=== PATIENT | male | born 1930 | race Caucasian/White ===

== ENCOUNTER 2018-10-26 14:29 | Inpatient (IN) | payer MEDICARE ==
[~2018-10-26] VITALS: Ht 162.6 cm; Wt 78.6 kg
[2018-10-26] MEDS ORDERED: AMARYL4 MG PO (14:56)
[2018-10-26] MEDS ORDERED: NEURONTIN100 MG/CAP PO (14:57)
[2018-10-26] MEDS ORDERED: FLOMAX 0.40.4 MG/CAP PO (14:57)
[2018-10-26] MEDS ORDERED: PROSCAR 5MG5 MG PO (14:57)
[2018-10-26] MEDS ORDERED: GLUCOPHAGE1000 MG PO (14:57)
[2018-10-26 15:44] LABS: BASO % 0.4 % (0.0-2.0); EOS # 0.2 (0.0-0.7); EOS % 2.1 % (0-4.0); GRAN # 5.2 (1.4-6.5); GRAN % 51.3 % (42.2-75.2); HEMOGLOBIN 12.4 g/dl (13.5-18.0); LYMPH # 3.9 (1.2-3.4); LYMPH % 38.3 % (20.0-51.0); MEAN CELL VOLUME 88 fl (80.0-100.0); MEAN CORPUSCULAR HEMOGLOBIN 30 pg (27.0-31.0); MEAN CORPUSCULAR HGB CONC 34 g/dl (33.0-37.0); MONO # 0.8 (0.1-0.6); MONO % 7.6 % (1.7-9.3); PLATELET COUNT 232 K/mm3 (130-400); RED BLOOD COUNT 4.14 M/mm3 (4.20-5.60)
[2018-10-26 15:45] LABS: HEMATOCRIT 36.4 % (42.0-52.0)
[2018-10-26 15:53] LABS: ALANINE AMINOTRANSFERASE 14 U/L (21-72); ALBUMIN 3.8 gm/dL (3.5-5.0); ALKALINE PHOSPHATASE 70 U/L (50-136); ANION GAP 11 mmol/L (7-16); AST,SGOT 18 U/L (15-37); BILIRUBIN,TOTAL 0.2 mg/dL (0.0-1.0); BLOOD UREA NITROGEN 23 mg/dL (9-20); CALCIUM 8.8 mg/dL (8.4-10.2); CARBON DIOXIDE 26 mmol/L (22-30); CHLORIDE 103 mmol/L (98-107); GLUCOSE 122 mg/dL (74-106); POTASSIUM 5.2 mmol/L (3.4-5.0); SODIUM 141 mmol/L (137-145); TOTAL PROTEIN 7.3 gm/dL (6.4-8.2)
[2018-10-26 16:05] LABS: TROPONIN-I < 0.012 ng/mL (0.000-0.035)
[2018-10-26 17:40] VITALS: BP 186/81; PULSE 83; TEMP 97.6
[2018-10-26] MEDS ORDERED: PRESERVISION1 SGL PO (17:49)
--- NOTE | 2018-10-26 17:57 | NUR ---
PT TO ROOM 345 WITH REPORT FROM ED @ 1745, VSS ASSESSMENTS COMPLETE. PT ADMITTED FOR STROKE AND RIGHT SIDED WEAKNESS. NO SIGNIFICANT DEFICITS NOTED DURING ASSESSMENTS. PT A/O X3, NORMAL SPEECH. FAMILY AT BEDSIDE.
--- NOTE | 2018-10-26 19:30 | NUR ---
Assisted patient to bathroom with 1 person and cane. Slightly unsteady upon standing, gait steady while ambulating. Voids and back to bed with assist. Is alert and oriented x4. Reports no peripheral vision on the right, normal on the left and vision is clear straight on. Has no strength deficits, clinical reviewer strong and equal. Spouse is at bedside. SL to right AC without redness or swelling. Pt reports no swallowing difficulty and was able to eat all of his dinner tray. Telemetry shows SR.
[2018-10-26 19:59] VITALS: BP 157/53; PULSE 90; TEMP 98.1
[2018-10-26 20:00] VITALS: BP 157/53; PULSE 90; TEMP 98.1
[2018-10-26 23:13] VITALS: BP 127/49; PULSE 85; TEMP 98.1
[2018-10-27] VITALS: BP 127/49; PULSE 85; TEMP 98.2
[2018-10-27 03:22] VITALS: BP 150/60; PULSE 81; TEMP 97.8
--- NOTE | 2018-10-27 04:00 | NUR ---
Patient has rested fair. Neuro checks and Stroke scale checks have been unchanged this shift.
[2018-10-27 06:04] LABS: BASO % 0.4 % (0.0-2.0); EOS # 0.3 (0.0-0.7); EOS % 2.9 % (0-4.0); GRAN # 4.2 (1.4-6.5); GRAN % 45.6 % (42.2-75.2); HEMOGLOBIN 11.7 g/dl (13.5-18.0); LYMPH # 4.1 (1.2-3.4); LYMPH % 43.7 % (20.0-51.0); MEAN CELL VOLUME 88 fl (80.0-100.0); MEAN CORPUSCULAR HEMOGLOBIN 30 pg (27.0-31.0); MEAN CORPUSCULAR HGB CONC 34 g/dl (33.0-37.0); MEAN PLATELET VOLUME 10.3 fl (7.4-10.4); MONO # 0.7 (0.1-0.6); MONO % 7.1 % (1.7-9.3); PLATELET COUNT 222 K/mm3 (130-400); RED BLOOD COUNT 3.92 M/mm3 (4.20-5.60); REDCELL DISTRIBUTION WIDTH-CV 11.9 % (11.5-14.5)
[2018-10-27 06:05] LABS: HEMATOCRIT 34.6 % (42.0-52.0)
[2018-10-27 06:15] LABS: ALBUMIN 3.4 gm/dL (3.5-5.0); BILIRUBIN,TOTAL 0.4 mg/dL (0.0-1.0); CALCIUM 8.5 mg/dL (8.4-10.2); CHOLESTEROL RISK RATIO 6.8; CREATININE, serum 0.98 (0.66-1.25); POTASSIUM 4.5 mmol/L (3.4-5.0); TOTAL PROTEIN 6.5 gm/dL (6.4-8.2)
[2018-10-27 08:30] VITALS: BP 167/56; PULSE 81; TEMP 98
--- NOTE | 2018-10-27 09:10 | NUR ---
SW attended clincal rounds to discuss discharge planning. Patient lives at home with his in [place]. Patient's PCP is Dr Abner Oliva and he obtains prescriptions from [facility] in [place]. Patient will be seen by PT/OT/ST to see if patient will require any post acute rehab or home health services. SW will follow up with patient and once recommendations are made.
--- NOTE | 2018-10-27 10:52 | NUR ---
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
[2018-10-27 12:50] VITALS: BP 154/50; PULSE 81; TEMP 97.6
--- NOTE | 2018-10-27 14:42 | NUR ---
Home health was recommended for the patient. KEV presented a Medicare.gov list of agencies serving the [facility] to the pt. [facility]. KEV faxed the referral and is awaiting a response. KEV will continue to follow.
[2018-10-27 15:21] VITALS: BP 137/54; PULSE 85; TEMP 97.4
--- NOTE | 2018-10-27 16:05 | NUR ---
KEV met with the pt to choose another home health agency. The pt chose [facility]. KEV faxed referral and is awaiting response. KEV will continue to follow.
[2018-10-27 19:47] VITALS: BP 148/48; PULSE 84; TEMP 98
--- NOTE | 2018-10-27 20:30 | NUR ---
PT RESTING IN BED. CHEERFUL AND TALKATIVE. AT BEDSIDE. PT DENIES ANY DEVIATION FROM "HIS NORMAL". TELEMETRY CONTINUES. NEURO WNLS. DENIES PAIN OTHER THAN NEUROPATHY. CALL LIGHT IN REACH.
[2018-10-28] VITALS: BP 111/56; PULSE 76; TEMP 98.7
[2018-10-28 03:56] VITALS: BP 123/52; PULSE 79; TEMP 98.9
--- NOTE | 2018-10-28 05:20 | NUR ---
PT HAS RESTED WELL THIS SHIFT. NO CHANGE IN STATUS. STAYED THROUGH THE NIGHT.
[2018-10-28 05:38] LABS: BASO % 0.5 % (0.0-2.0); EOS # 0.2 (0.0-0.7); EOS % 2.6 % (0-4.0); GRAN # 4.5 (1.4-6.5); GRAN % 51.4 % (42.2-75.2); HEMOGLOBIN 11.8 g/dl (13.5-18.0); LYMPH # 3.3 (1.2-3.4); LYMPH % 37.3 % (20.0-51.0); MEAN CELL VOLUME 86 fl (80.0-100.0); MEAN CORPUSCULAR HEMOGLOBIN 30 pg (27.0-31.0); MEAN CORPUSCULAR HGB CONC 35 g/dl (33.0-37.0); MONO # 0.7 (0.1-0.6); PLATELET COUNT 225 K/mm3 (130-400); RED BLOOD COUNT 3.95 M/mm3 (4.20-5.60); REDCELL DISTRIBUTION WIDTH-CV 11.8 % (11.5-14.5)
[2018-10-28 05:57] LABS: CALCIUM 8.7 mg/dL (8.4-10.2); CREATININE, serum 1.11 (0.66-1.25); POTASSIUM 4.6 mmol/L (3.4-5.0)
--- NOTE | 2018-10-28 07:41 | NUR ---
Patient sitting up at edge of bed, drinking coffee. He was up to the bathroom this am. Steady on his feet. Reports he feels his eyes site is improved this am. He is hopeful for discharge home. Will monitor.
[2018-10-28 09:00] VITALS: BP 163/65; PULSE 81; TEMP 97.6
--- NOTE | 2018-10-28 09:31 | NUR ---
Patient denies needs, just wanting to discharge home.
[2018-10-28] MEDS ORDERED: LIPITOR20 MG PO (10:49)
[2018-10-28] MEDS ORDERED: PLAVIX 75MG TAB75 MG PO (10:49)
[2018-10-28] MEDS ORDERED: NORVASC 5MG5 MG/TAB PO (10:50)
--- NOTE | 2018-10-28 12:21 | NUR ---
The patient is to discharge home with [facility] today, 10/28. KEV faxed discharge orders to [facility] . There are no additional needs at this time.
--- NOTE | 2018-10-28 12:25 | NUR ---
Patient ready to discharge home. Hospitalist team rounded & orders obtained. Patient given all discharge instructions, we reviewed new scripts for lipitor,plavix, & norvac sent to His preferred pharmacy. We discussed stroke prevention & recovery. He will have home health. Follow up appts reviewed. Don Carrillo wheeled out with all belongigns, His taking him home
== END 2018-10-28 12:28 | disposition home health service (06) | DRG 65 ==
LOC: COL.ER 14:29 → SURG 16:03
PROVIDERS: Emergency Medicine; Physician Assistant; ADMIT Internal Medicine
DX: I63.89 Other cerebral infarction (principal); G81.91 Hemiplegia, unspecified affecting right dominant side; E11.40 Type 2 diabetes mellitus with diabetic neuropathy, unspecified; Z79.84 Long term (current) use of oral hypoglycemic drugs; N40.0 Benign prostatic hyperplasia without lower urinary tract symptoms; Z88.6 Allergy status to analgesic agent
CPT/HCPCS: 99222-AI; 99232-AI; 99239; J1644; J1815; J7030

== ENCOUNTER 2019-02-15 09:42 | Day surgery (SDC) | payer MEDICARE ==
[2019-02-15] VITALS (11 sets, daily range): BP systolic 99–176; BP diastolic 52–74; PULSE 62–75; TEMP 96.9–98.5
[~2019-02-15] VITALS: Ht 162.7 cm; Wt 70.2 kg
[~2019-02-15 09:42] MED LIST: AMARYL4 MG PO; FLOMAX 0.40.4 MG/CAP PO; GLUCOPHAGE1000 MG PO; LASIX 20MG TABL20 MG PO; LIPITOR20 MG PO; NEURONTIN100 MG/CAP PO; NORVASC 5MG5 MG/TAB PO; PLAVIX 75MG TAB75 MG PO; PRESERVISION1 SGL PO; PROSCAR 5MG5 MG PO; TOPROL XL 25MG25 MG PO; ZESTRIL2.5 MG PO
[2019-02-15 10:27] LABS: HEMOGLOBIN 10.6 g/dl (13.5-18.0); MEAN CELL VOLUME 89 fl (80.0-100.0); MEAN CORPUSCULAR HEMOGLOBIN 29 pg (27.0-31.0); MEAN CORPUSCULAR HGB CONC 33 g/dl (33.0-37.0); MEAN PLATELET VOLUME 10.7 fl (7.4-10.4); PLATELET COUNT 213 K/mm3 (130-400); REDCELL DISTRIBUTION WIDTH-CV 13.1 % (11.5-14.5)
[2019-02-15 10:35] LABS: CREATININE, serum 1.05 (0.66-1.25); POTASSIUM 5.1 mmol/L (3.4-5.0)
--- NOTE | 2019-02-15 12:33 | NUR ---
SEE MERGE DOCUMENTATION FOR MEDICATION ADMINISTRATION TIMES AND INTRA/POST PROCEDURE SEDATION ASSESSMENTS.
--- NOTE | 2019-02-15 13:58 | NUR ---
Patient to room 311 by cart from color laboratory technician. Patient A&Ox4, denies pain and discomfort. Assessment complete. Right radial band, CDI, arm board in place. VSS. IV CDI. No further needs expressed from patient. Call light within reach. VS monitored post op. Will continue to monitor
--- NOTE | 2019-02-15 16:18 | NUR ---
5ml air removed from right radial band with no visual bleeding. Nurse stayed at the bedside with the patient for 5 minutes. There was no additional bleeding from puncture site. The rest of the air, 8ml released from radial band and a bandaid was applied. Nurse instructed patient not to put weight on right hand and to monitor for bleeding. Nurse instructed patient to call nursing staff if bleeding from puncture site. Patient tolerated well. No further needs expressed from patient. Call light within reach. Will continue to monitor
--- NOTE | 2019-02-15 17:48 | NUR ---
Patient has been resting in bed. A&Ox4, denies pain and discomfort. Right radial puncture site CDI, bandaid applied. [facility] WNL. VSS. INT CDI. Patient ambulating with standby assist. No further needs expressed from patient. Call light within reach
--- NOTE | 2019-02-15 21:00 | NUR ---
Resting in bed. Assessment completed. Lung bases bilaterally have crackles present. Right radial site CDI with bandaide in place. Denies pain. Patient states "I have never felt better." Denies needs at this time. Call light in reach.
--- NOTE | 2019-02-15 21:29 | NUR ---
Spoke with Dr. Wan for telemetry pulse parameters. Set to 30 to 130. Ordered added.
--- NOTE | 2019-02-16 00:15 | NUR ---
Resting in bed. Denies needs. Call light in reach.
[2019-02-16 01:05] VITALS: BP 130/45
[2019-02-16 03:31] VITALS: BP 152/51; PULSE 68; TEMP 97.7
--- NOTE | 2019-02-16 04:03 | NUR ---
Patient reports diaphoretic and not feeling well. Blood sugar 200. Patient reports need to have bowel movement. Assisted patient to restroom. Symptoms resolved with using restroom. Will continue to monitor.
--- NOTE | 2019-02-16 06:14 | NUR ---
Patient reported diaphoresis earlier in the night with upset stomach that resolved with bowel movement. Otherwise uneventful night. Reports "I feel much much better." Denies needs this AM. Call light in reach.
[2019-02-16 07:10] VITALS: BP 178/59; PULSE 81
--- NOTE | 2019-02-16 07:15 | NUR ---
Report given to GLORIA Raya
--- NOTE | 2019-02-16 07:50 | NUR ---
Initial; pt laying in bed complained of SOB; took pt's vital signs. BP minor high. Dr. Martínez rounded soon after and has plans for D/C. No other concerns. Planning discharge after morning medications administered.
--- NOTE | 2019-02-16 09:18 | NUR ---
KEV met with the patient and the patient's , Miya (ph#[phone]), to discuss discharge plan. The patient lives in [place] with his . He reports independence with ADLs and has a cane. The patient's PCP is Dr. Shahab Oliva and he receives his medications at [facility]. He reports no difficulties obtaining his meds. The patient does not have advanced directives completed and he was not interested in completing them at this time. The patient plans to return back home with his upon discharge. No additional needs at this time.
== END 2019-02-16 11:07 | disposition home or self-care (01) ==
LOC: COL.CAR 09:42 → MEDICAL 13:41 → COL.CAR 02-16 11:07
PROVIDERS: Internal Medicine Cardiovascular Disease
DX: I25.10 Atherosclerotic heart disease of native coronary artery without angina pectoris (principal); I25.2 Old myocardial infarction; E11.9 Type 2 diabetes mellitus without complications; I11.0 Hypertensive heart disease with heart failure; I50.22 Chronic systolic (congestive) heart failure; E78.5 Hyperlipidemia, unspecified; Z79.84 Long term (current) use of oral hypoglycemic drugs; Z79.02 Long term (current) use of antithrombotics/antiplatelets; Z87.891 Personal history of nicotine dependence; Z88.6 Allergy status to analgesic agent; Z86.73 Personal history of transient ischemic attack (TIA), and cerebral infarction without residual deficits; F03.90 Unspecified dementia, unspecified severity, without behavioral disturbance, psychotic disturbance, mood disturbance, and anxiety
CPT/HCPCS: OP; C1725; C1769; C1874; C1887; C9600; J1644; Q9967